=== PATIENT | female | born 1955 | race Caucasian/White ===

== ENCOUNTER → 2018-02-27 | Outpatient (CLI) | payer OTHER ==
[~2018-02-27] MED LIST: OPTIRAY 320 IV PRN
--- NOTE | 2018-02-27 14:20 | DIAGNOSTIC IMAGING REPORT ---
LEFT FOOT CT CT DOSE: 182.12 mGy.cm HISTORY: Nonhealing left fifth metatarsal. TECHNIQUE: Multiaxial CT images of the left foot were performed and reformatted in the sagittal and coronal plane without the use of contrast. A dose lowering technique was utilized adhering to the principles of ALARA. COMPARISON: None. FINDINGS: There are small ossific density seen adjacent to the medial and lateral malleoli consistent with old avulsion injuries. No acute fracture or dislocation within the left foot. There is an oblique fracture at the neck of the fifth metatarsal which demonstrates complete bony bridging. Therefore, this is considered to be healed. This demonstrates slight medial angulation and displacement. No cortical erosions or bony destruction to suggest osteomyelitis. Small posterior calcaneal spur. IMPRESSION: Healed oblique fracture at the neck of the fifth metatarsal. Electronically signed by: Tc Peterson M.D. 02/27/2018 2:19 PM Dictated Date/Time: 02/27/2018 2:11 PM
== END | disposition home or self-care (01) ==
LOC: C.CTS 13:49
PROVIDERS: ATTEND Podiatrist Foot & Ankle Surgery
DX: M24.875 Other specific joint derangements left foot, not elsewhere classified (principal); M77.8 Other enthesopathies, not elsewhere classified; M19.272 Secondary osteoarthritis, left ankle and foot